=== PATIENT | female | born 1970 | race Caucasian/White ===

== ENCOUNTER 2016-08-12 07:50 | Day surgery (SDC) | payer BC ==
[2016-08-07 09:10] LABS: PARTIAL THROMBO TIME 27.2 SEC (22.5-37.2); PROTIME (NOT ORD) 12.6 SEC (12.0-14.5)
[2016-08-07 09:17] LABS: BUN (BLOOD UREA NITROGEN) 10 MG/DL (6-23); CALCIUM, SERUM 9.4 MG/DL (8.5-10.4); CHLORIDE, SERUM 103 MMOL/L (96-112); CO2 (CARBON DIOXIDE) 26 MMOL/L (24-34); CREATININE 0.72 MG/DL (0.55-1.02); GFR AFRICAN AMERICAN 116 ML/MIN (>=60); GFR NON AFRICAN AMERICAN 100 ML/MIN (>=60); GLUCOSE, SERUM 180 MG/DL (60-99); POTASSIUM, SERUM 4.7 MMOL/L (3.5-5.3); SODIUM, SERUM 141 MMOL/L (135-148)
[2016-08-07 09:26] LABS: BASOPHILS ABSOLUTE 0.05 10/3/uL (0.0-0.16); EOSINOPHILS 2.3 %; EOSINOPHILS ABSOLUTE 0.11 10/3/uL (0.0-0.53); HEMOGLOBIN 13.3 g/dL (12.0-16.0); IMMATURE GRANULOCYTES 0.4 %; IMMATURE GRANULOCYTES ABSOLUTE 0.02 10/3/uL (0.0-0.11); LYMPHOCYTES 39.8 %; LYMPHOCYTES ABSOLUTE 1.94 10/3/uL (0.67-4.30); MEAN CORPUS HGB CONC 33.3 g/dL (32.0-36.0); MEAN CORPUSCULAR HEMOGLOB 29.1 pg (26.0-34.0); MEAN CORPUSCULAR VOLUME 87.5 fL (80-100); MEAN PLATELET VOLUME 12.6 fL (9.2-13.0); MONOCYTES 7.6 %; MONOCYTES ABSOLUTE 0.37 10/3/uL (0.21-1.20); NEUTROPHILS 48.9 %; NEUTROPHILS ABSOLUTE 2.39 10/3/uL (2.02-8.40); PLATELET COUNT 213 10/3/uL (150-400); RBC DISTRIBUTION WIDTH 12.9 % (12.0-16.0); RED CELL COUNT 4.57 10/6/uL (4.0-5.6); WHITE BLOOD CELLS 4.9 10/3/uL (4.5-10.5)
[2016-08-07 09:29] LABS: MANUAL DIFF NO %
--- NOTE | ~2016-08-12 | OP ---
Record Of Operation [facility] [address] [place]. [address] NAME: AGAPITO MCKINNEY : 68 STATUS : [facility]#: [id number] AGE: 45 ADM/REG DATE : 08/12/16 MR#: [id number] REPORT SERV DATE: 08/14/16 DICTATED BY: JEREMIAS VELA DATE: 08/14/16 REPORT STATUS : Draft TRANSCRIBED BY: MODOliva DATE: 08/14/16 DATE OF PROCEDURE: 08/12/2016 PREOPERATIVE DIAGNOSIS: A 4 cm left thyroid lobe nodule. POSTOPERATIVE DIAGNOSIS: A 4 cm left thyroid lobe nodule. OPERATIVE PROCEDURE PERFORMED: Left thyroid lobectomy and NIM nerve neural integrity monitoring. INDICATIONS AND SIGNIFICANT HISTORY: The patient is a 45-year-old female with a significant history of a slowly-enlarging left thyroid lobe nodule. Needle biopsy suggested a lesion of undetermined significance, and the patient was felt to benefit from surgical therapy including a left thyroid lobectomy with possible total thyroidectomy. At this point, the anterior neck was prepped and draped in the standard sterile fashion. A 15-blade scalpel was used to make a horizontal skin incision through a natural skin crease, and subplatysmal flaps were elevated superiorly and inferiorly. Strap muscles were divided in the midline and retracted laterally. The anterior aspect of the thyroid gland was identified, and dissection began over the left thyroid lobe. Middle thyroid veins were divided with bipolar cautery. Inferior and superior pole vessels were isolated with a right-angle clamp and divided with Harmonic scalpel. Next, the thyroid isthmus was divided adjacent to the right thyroid lobe, and a combination of sharp and blunt dissection was used to dissect the left thyroid lobe from its position in the left thyroid bed. The recurrent laryngeal nerve was identified actually with an external division and internal division and was preserved through the course of dissection. It also remained stimulable with a NIM nerve neural integrity monitoring. At this point, the left thyroid lobe was clinically suspicious with markedly calcified, firm nodule and was sent to pathology for frozen section. Frozen section returned as hyperplasia and no initial sign of malignancy. The wound was then closed with deep Vicryl suture followed by closure of the skin with Prolene. Steri-Strips were applied. She was turned back toward Anesthesia, aroused from anesthesia, and taken to the postanesthesia care unit in satisfactory condition. COMPLICATIONS: None. ESTIMATED BLOOD LOSS: Less than 10 mL. IV FLUIDS: Per Anesthesia. DLA/MODL Jeremias Vela M.D. / [id number] Record Of [address] [place]. [address] NAME: AGAPITO MCKINNEY : 68 STATUS : [facility] PAT#: [id number] AGE: 45 ADM/REG DATE : 08/12/16 MR#: [id number] REPORT SERV DATE: 08/14/16 DICTATED BY: JEREMIAS VELA. DATE: 08/14/16 REPORT STATUS : Draft TRANSCRIBED BY: WEN DATE: 08/14/16 CC: Jeremias Vela M.D.
[~2016-08-12 07:50] MED LIST: ASAB PO; GLUCOPHAGE1000 MG PO; LEVEMFLXPN SC; NOVOLOG SC; VICTOZA18 MG/3 ML SC
== END 2016-08-12 16:57 | disposition home or self-care (01) ==
LOC: SDC 07:50
PROVIDERS: Otolaryngology
PROC: 0GBG0ZZ Excision of Left Thyroid Gland Lobe, Open Approach (ICD-10-PCS; principal; 2016-08-12 09:45)
DX: E04.1 Nontoxic single thyroid nodule (principal); E78.00 Pure hypercholesterolemia, unspecified; M19.90 Unspecified osteoarthritis, unspecified site; E11.9 Type 2 diabetes mellitus without complications; Z90.710 Acquired absence of both cervix and uterus; Z98.890 Other specified postprocedural states; Z88.2 Allergy status to sulfonamides; Z88.1 Allergy status to other antibiotic agents; Z88.6 Allergy status to analgesic agent
CPT/HCPCS: 80048; 82962; 85025; 85610; 85730; 88307; 88311; 88331; A9270-GY; J0690; J1170; J2250; J2270; J2405; J2550; J3010

== ENCOUNTER 2016-08-16 21:47 | Emergency (ER) | payer BC ==
[2016-08-16 21:17] LABS: BASOPHILS 0.8 %; BASOPHILS ABSOLUTE 0.05 10/3/uL (0.0-0.16); EOSINOPHILS 3.7 %; EOSINOPHILS ABSOLUTE 0.22 10/3/uL (0.0-0.53); ER CBC TAT 0 Hrs 08 Mins; HEMATOCRIT 42.2 % (36.0-48.0); HEMOGLOBIN 14.6 g/dL (12.0-16.0); IMMATURE GRANULOCYTES 0.5 %; IMMATURE GRANULOCYTES ABSOLUTE 0.03 10/3/uL (0.0-0.11); LYMPHOCYTES 38.5 %; LYMPHOCYTES ABSOLUTE 2.29 10/3/uL (0.67-4.30); MEAN CORPUS HGB CONC 34.6 g/dL (32.0-36.0); MEAN CORPUSCULAR HEMOGLOB 29.8 pg (26.0-34.0); MEAN CORPUSCULAR VOLUME 86.1 fL (80-100); MEAN PLATELET VOLUME 11.6 fL (9.2-13.0); MONOCYTES 6.4 %; MONOCYTES ABSOLUTE 0.38 10/3/uL (0.21-1.20); NEUTROPHILS 50.1 %; NEUTROPHILS ABSOLUTE 2.98 10/3/uL (2.02-8.40); PLATELET COUNT 274 10/3/uL (150-400); RBC DISTRIBUTION WIDTH 12.3 % (12.0-16.0)
[2016-08-16 21:18] LABS: MANUAL DIFF NO %
[2016-08-16 21:32] LABS: A/G RATIO 0.8 (0.7-1.9); ALBUMIN 3.8 G/DL (3.5-5.0); BUN (BLOOD UREA NITROGEN) 11 MG/DL (6-23); CALCIUM, SERUM 9.7 MG/DL (8.5-10.4); CHLORIDE, SERUM 98 MMOL/L (96-112); CO2 (CARBON DIOXIDE) 25 MMOL/L (24-34); CREATININE 1.03 MG/DL (0.55-1.02); GFR AFRICAN AMERICAN 75 ML/MIN (>=60); GFR NON AFRICAN AMERICAN 65 ML/MIN (>=60); GLOBULIN 4.5 G/DL (2.5-4.1); POTASSIUM, SERUM 4.3 MMOL/L (3.5-5.3); SGOT(AST) 19 U/L (5-40); SGPT(ALT) 98 U/L (5-65); TOTAL BILIRUBIN 0.5 MG/DL (0-1.2); TOTAL PROTEIN 8.3 G/DL (6.0-8.5)
[2016-08-16 21:33] LABS: ALKALINE PHOSPHATASE 177 U/L (45-117); GLUCOSE, SERUM 281 MG/DL (60-99); SODIUM, SERUM 133 MMOL/L (135-148)
[2016-08-16 21:38] LABS: LACTATE 4.3 MMOL/L (0.3-2.4)
[2016-08-16 21:51] LABS: PROCALCITONIN 0.05 ng/mL (<0.5)
[2016-08-16 22:24] LABS: WBC (NOT ORDERED) (RFLEX) 0 (0-5)
[2016-08-16 22:32] LABS: ASCORBIC ACID (UR NOT ORDER) NEG (NEG); BILIRUBIN, URINE NEGATIVE (NEG); ER URINALYSIS TAT 0 Hrs 09 Mins; KETONE, URINE TRACE MG/DL (NEG); LEUKOCYTE ESTERASE(NOT OR NEG (NEG); NITRITE (URINE) NEG (NEG)
== END 2016-08-16 23:21 | disposition home or self-care (01) ==
LOC: ER 21:47
PROVIDERS: Nurse Practitioner
DX: E89.89 Other postprocedural endocrine and metabolic complications and disorders (principal); E11.65 Type 2 diabetes mellitus with hyperglycemia; R11.0 Nausea; Z88.2 Allergy status to sulfonamides; Z88.1 Allergy status to other antibiotic agents; Z88.8 Allergy status to other drugs, medicaments and biological substances; Z79.4 Long term (current) use of insulin; Z79.84 Long term (current) use of oral hypoglycemic drugs; Z79.82 Long term (current) use of aspirin; Z79.899 Other long term (current) drug therapy
CPT/HCPCS: 80053; 81001; 82330; 83605; 84145; 85025; 87040; 96374; 99283; J2405